=== PATIENT | female | born 2005 | race African-American/Black ===

== ENCOUNTER 2024-03-13 19:29 | Emergency (ER) | payer SELFPAY ==
[~2024-03-13] VITALS: Ht 170.2 cm; Wt 79.0 kg
[2024-03-13] MEDS ORDERED: ZITHROMAX500 MG PO (20:40)
[2024-03-13 21:28] VITALS: BP 120/75
[2024-03-13 21:30] VITALS: BP 108/70
[2024-03-13] MEDS ORDERED: OXYMETAZOLINE HCL 15 ML/BTL ONE (21:30)
[2024-03-13 21:45] VITALS: BP 115/83
[2024-03-13 22:26] LABS: BASO% 0.5 % (0-3); EOS% 0.3 % (0-8); HEMATOCRIT 41.9 % (37.0-47.0); HEMOGLOBIN 13.1 g/dl (12.0-16.0); IMMATURE GRANULOCYTES 0.2 % (0.0-5.0); LYMPH% 16.7 % (15-41); MEAN CELL VOLUME 86.7 fL CALC (80.0-100.0); MEAN CORPUSCULAR HGB 27.1 pG CALC (26.0-32.0); MEAN CORPUSCULAR HGB CONC 31.3 g/dL CAL (32.0-36.0); MONO% 5.8 % (2-13); NEUT% 76.5 % (42-76); RED BLOOD COUNT 4.83 mill/uL (4.20-5.60); RED CELL DISTRI WIDTH 13.5 % (11.5-15.5)
[2024-03-13 22:42] LABS: URINE BILIRUBIN - DIPSTICK Negative (NEGATIVE); URINE BLOOD DIPSTICK Trace-intact (NEGATIVE); URINE GLUCOSE - DIPSTICK Negative (NEGATIVE); URINE KETONE Trace mg/dL (NEGATIVE); URINE LEUK ESTERASE Trace (NEGATIVE); URINE NITRITE - DIPSTICK Negative (Negative); URINE PROTEIN - DIPSTICK Negative (NEG-TRACE); URINE UROBILINOGEN - DIPSTICK 0.2 E.U./dL (0.2)
[2024-03-13 22:44] LABS: URINE COLOR Yellow
[2024-03-13 22:49] LABS: PROTHROMBIN TIME 10.5 SECONDS (9.0-12.5)
[2024-03-13 22:50] LABS: D-DIMER < 0.19 mg/L (0.19-0.60)
[2024-03-13 23:13] LABS: ALBUMIN 4.5 g/dL (3.2-5.0); ALKALINE PHOSPHATASE 43 u/l (38-126); ANION GAP 14 (6-22 (CALC)); BUN 7 mg/dL (8-21); BUN/CREATININE RATIO 10 (12-20 (CALC)); CARBON DIOXIDE 24 mmol/l (22-30); CHLORIDE 105 mmol/l (95-108); CREATININE 0.7 mg/dL (0.5-1.0); ESTIMATED GFR 128 ML/MIN (>=90 (CALC)); POTASSIUM 3.7 mmol/l (3.5-5.1); SGOT/AST 25 u/l (14-36); SODIUM 139 mmol/l (137-146); TOTAL PROTEIN 7.5 g/dL (6.3-8.2)
[2024-03-13] MEDS ORDERED: ALLEGRA-D 2424 HOUR PO (23:34)
[2024-03-13 23:50] VITALS: BP 115/83
== END 2024-03-13 23:50 | disposition home or self-care (01) | DRG 153 ==
LOC: ED 19:29
PROVIDERS: Family Medicine
DX: J31.0 Chronic rhinitis (principal); R06.00 Dyspnea, unspecified